=== PATIENT | female | born 1970 | race Caucasian/White ===

== ENCOUNTER 2021-08-10 08:59 | Emergency (ER) | payer OTHER ==
[2021-08-10 10:06] LABS: Bilirubin Neg (Negative); Blood, Urine 25 (Negative); Clarity Clear (Clear); Glucose, Urine (Dipstick) Normal (Negative); Ketone, Urine Negative (Negative); Leukocyte 500 (Negative); Nitrite Negative (Negative); Protein, Urine (Dipstick) 15 mg/dl (Neg-Trace); Urobilinogen Normal mg/dL (Less than 2)
[2021-08-10] MEDS ORDERED: Ondansetron PF 4 MG/2 ML Vial ONE (10:08)
[2021-08-10] MEDS ORDERED: Morphine 4 MG/ML VIAL ONE (10:08)
[2021-08-10 10:09] LABS: Pregnancy Test - Urine (BHCG) Negative (Negative); Pregu Control Background? CLEAR/WHITE (CLR/WHITE); Pregu Control Bar Appear? YES (CONTROL BAR)
[2021-08-10] MEDS ORDERED: Acetaminophen 500 MG TAB ONE (10:09)
[2021-08-10] MEDS ORDERED: Ketorolac Tromethamine 30 MG/ML VIAL ONE (10:09)
[2021-08-10 10:10] LABS: #Monocytes 0.9 10x3/uL (0.0-1.1); %Basophils 0.1 % (0.0-2.0); %Lymphocytes 7.1 % (18.0-47.0); %Monocytes 6.5 % (0.0-10.0); %Neutrophils 85.9 % (40.0-75.0); Hemoglobin 11.6 g/dL (12.0-15.5); Mean Corpuscular HGB CONC 33.3 g/dL (32.0-36.0); Mean Corpuscular Hemoglobin 29.9 pg (27.0-33.0); Mean Corpuscular Volume 89.7 fl (81.6-98.3); Mean Platelet Volume 9.5 fl (7.4-10.4); Platelet Count 286 10x3/uL (150-450); RBC Distribution Width 12.4 % (11.5-14.5); Red Blood Cell (RBC) Count 3.88 10x6/uL (3.90-5.03)
[2021-08-10 10:13] LABS: Bacteria/HPF Rare-Few HPF (None Seen); RBC/HPF 0-3 HPF (0-3); Squamous Epithelial 0-3 HPF (0-3)
[2021-08-10 10:20] LABS: ALT (SGPT) 30 U/L (8-55); AST (SGOT) 44 U/L (5-34); Albumin 4.1 g/dL (3.5-5.0); Alkaline Phosphatase 69 U/L (40-110); Anion Gap 14 mmol/L (10-20); BUN (Urea Nitrogen) 11 mg/dL (9.8-20.1); Bilirubin, Total 0.6 mg/dL (0.2-1.2); Calc. Creatinine Clearance 0 mL/min (70-130); Calcium 8.9 mg/dL (7.8-10.44); Carbon Dioxide 24 mmol/L (22-29); Chloride 102 mmol/L (98-107); Globulin 2.6 g/dL (2.4-3.5); Glucose 108 mg/dL (70-105); Lipase 5 U/L (8-78); Potassium 3.7 mmol/L (3.5-5.1); Protein, Total 6.7 g/dL (6.0-8.3); Sodium 136 mmol/L (136-145)
[2021-08-10] MEDS ORDERED: cefTRIAXone\\ROCEPHIN 2 GM VIAL ONE (10:47)
[2021-08-10] MEDS ORDERED: diphenhydrAMINE 50 MG/ML VIAL ONE (12:06)
== END 2021-08-10 14:14 | disposition home or self-care (01) ==
LOC: CSHERS 08:59
DX: N12 Tubulo-interstitial nephritis, not specified as acute or chronic (principal); D64.9 Anemia, unspecified
CPT/HCPCS: 71045; 74177; 80053; 81003; 81015; 81025; 83690; 84484; 85025; 87077; 87086; 87186; 93005; 96365; 96375; J0696; J1200; J1885; J2270; J2405